=== PATIENT | male | born 1985 | race Caucasian/White ===

== ENCOUNTER 2021-10-07 18:11 | Emergency (ER) | payer SELFPAY ==
[2021-10-07 18:59] VITALS: BP 125/65; PULSE 89; RESP 18; TEMP 36.6; O2SAT 98; BMI 28.3
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
== END 2021-10-07 20:00 | disposition home or self-care (01) ==
PROVIDERS: Emergency Provider Emergency Medicine
DX: T25.222A Burn of second degree of left foot, initial encounter (principal); T31.0 Burns involving less than 10% of body surface; X10.2XXA Contact with fats and cooking oils, initial encounter; L03.116 Cellulitis of left lower limb; L84 Corns and callosities; Y93.G3 Activity, cooking and baking; Y92.030 Kitchen in apartment as the place of occurrence of the external cause; Y99.9 Unspecified external cause status
CPT/HCPCS: 99283

== ENCOUNTER 2024-06-28 18:26 | Emergency (ER) | payer SELFPAY ==
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
--- NOTE | ~2024-06-28 | CT_ITS ---
EXAMINATION: CT chest w IV con (accession [id number]), CT head/brain wo IV con (accession [id number]), CT abdomen pelvis w IV con (accession [id number]), CT cervical spine wo IV con (accession [id number]) CLINICAL INFORMATION: trauma. COMPARISON: CT abdomen and pelvis 12/29/2011. TECHNIQUE: CT imaging of the head and cervical spine were performed without contrast. Coronal and sagittal reformatted images for both exams were obtained. Multidetector volumetric imaging was performed from the thoracic inlet through the pubic symphysis following administration of 85 ml Omnipaque 350 intravenous contrast. Sagittal and coronal reformatted images were obtained on the technologist's workstation. Thin slice coned-down images of the thoracic and lumbar spine were obtained with sagittal and coronal reformatted images through the spine. This CT examination was performed using dose optimization techniques as appropriate, variously including the following: *Automated exposure control *Adjustment of mA and/or kV according to patient size (this includes techniques or standardized protocols for targeted exams where dose is matched to indication/reason for exam; i.e. extremities or head) *Use of iterative reconstruction technique DLP: 1019 mGy-cm FINDINGS: Head: There is no evidence of acute intracranial hemorrhage or territorial infarction. No abnormal mass effect or midline shift is seen. Villa to white matter differentiation is well preserved. No extra-axial fluid collections are identified. No hydrocephalus. No significant volume loss. There is no abnormal attenuation within the brain parenchyma. No acute osseous or soft tissue abnormality. Mucosal thickening in the bilateral maxillary sinuses. Remainder of the paranasal sinuses are clear. Cervical spine: There is anatomic alignment of the vertebral bodies and posterior elements. The atlantoaxial and atlantooccipital articulations are intact. Vertebral body heights and intervertebral disc spaces are maintained. No evidence of acute fracture. No prevertebral soft tissue swelling. Visualized portions of the lung apices are unremarkable. The thyroid gland is unremarkable. CHEST: Lung: The lungs are clear without focal opacity or nodule. Mediastinum: The mediastinum is normal. The central vascular structures are unremarkable. No hilar or mediastinal lymphadenopathy. Pericardium/Pleura: No significant effusion. No pleural mass or thickening. Chest Wall/Axilla: Bilateral gynecomastia. No axillary lymphadenopathy. ABDOMEN/PELVIS: The abdomen and pelvis exam is nondiagnostic secondary to marked motion artifact. The visualized abdominal structures in the CT exam showed no acute abdominal abnormalities. There is hepatic steatosis. No acute osseous abnormalities in the visualized thoracic and upper lumbar spine. CT/CT chest w IV con IMPRESSION: HEAD: No acute intracranial pathology. CERVICAL SPINE: No acute abnormality. CHEST: No acute abnormality. ABDOMEN AND PELVIS: 1. Abdominal images are nondiagnostic secondary to extensive motion artifact. 2. Hepatic steatosis. Electronically signed by: Juan Goff MD 06/28/2024 09:03 PM EDT
--- NOTE | ~2024-06-28 | CT_ITS ---
EXAMINATION: CT chest w IV con (accession [id number]), CT head/brain wo IV con (accession [id number]), CT abdomen pelvis w IV con (accession [id number]), CT cervical spine wo IV con (accession [id number]) CLINICAL INFORMATION: trauma. COMPARISON: CT abdomen and pelvis 12/29/2011. TECHNIQUE: CT imaging of the head and cervical spine were performed without contrast. Coronal and sagittal reformatted images for both exams were obtained. Multidetector volumetric imaging was performed from the thoracic inlet through the pubic symphysis following administration of 85 ml Omnipaque 350 intravenous contrast. Sagittal and coronal reformatted images were obtained on the technologist's workstation. Thin slice coned-down images of the thoracic and lumbar spine were obtained with sagittal and coronal reformatted images through the spine. This CT examination was performed using dose optimization techniques as appropriate, variously including the following: *Automated exposure control *Adjustment of mA and/or kV according to patient size (this includes techniques or standardized protocols for targeted exams where dose is matched to indication/reason for exam; i.e. extremities or head) *Use of iterative reconstruction technique DLP: 1019 mGy-cm FINDINGS: Head: There is no evidence of acute intracranial hemorrhage or territorial infarction. No abnormal mass effect or midline shift is seen. Villa to white matter differentiation is well preserved. No extra-axial fluid collections are identified. No hydrocephalus. No significant volume loss. There is no abnormal attenuation within the brain parenchyma. No acute osseous or soft tissue abnormality. Mucosal thickening in the bilateral maxillary sinuses. Remainder of the paranasal sinuses are clear. Cervical spine: There is anatomic alignment of the vertebral bodies and posterior elements. The atlantoaxial and atlantooccipital articulations are intact. Vertebral body heights and intervertebral disc spaces are maintained. No evidence of acute fracture. No prevertebral soft tissue swelling. Visualized portions of the lung apices are unremarkable. The thyroid gland is unremarkable. CHEST: Lung: The lungs are clear without focal opacity or nodule. Mediastinum: The mediastinum is normal. The central vascular structures are unremarkable. No hilar or mediastinal lymphadenopathy. Pericardium/Pleura: No significant effusion. No pleural mass or thickening. Chest Wall/Axilla: Bilateral gynecomastia. No axillary lymphadenopathy. ABDOMEN/PELVIS: The abdomen and pelvis exam is nondiagnostic secondary to marked motion artifact. The visualized abdominal structures in the CT exam showed no acute abdominal abnormalities. There is hepatic steatosis. No acute osseous abnormalities in the visualized thoracic and upper lumbar spine. CT/CT cervical spine wo IV con IMPRESSION: HEAD: No acute intracranial pathology. CERVICAL SPINE: No acute abnormality. CHEST: No acute abnormality. ABDOMEN AND PELVIS: 1. Abdominal images are nondiagnostic secondary to extensive motion artifact. 2. Hepatic steatosis. Electronically signed by: Juan Goff MD 06/28/2024 09:03 PM EDT
[2024-06-28 18:40] VITALS: BP 126/87; PULSE 90; RESP 18; TEMP 36.8; O2SAT 99; BMI 27.2
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
[2024-06-28 18:55] LABS: MANUAL DIFF FLAG NO
[2024-06-28 18:57] LABS: Basophils Percent Auto 0.2 % (0-2); Eosinophils Absolute Auto 0.1 X10*3/uL (0.0-0.4); Eosinophils Percent Auto 1.2 % (0-4); Hematocrit 39.8 % (42.0-52.0); Hemoglobin 14.5 g/dl (14.0-18.0); Imm Gran Abs Auto 0.02 X10*3/uL (0.00-0.03); Imm Gran Pct Auto 0.2 % (0.0-0.4); Lymphocytes Absolute Auto 1.4 X10*3/uL (1.2-4.9); Lymphocytes Percent Auto 17.5 % (20-40); Mean Corpuscular HGB Conc 36.4 g/dl (31.0-36.0); Mean Corpuscular Hemoglobin 32.8 pg (27.0-33.0); Mean Platelet Volume 9.5 fL (9.4-12.4); Monocytes Percent Auto 11.8 % (2-11); Neutrophils Absolute Auto 5.5 x10*3/uL (2.0-8.3); Neutrophils Percent Auto 69.1 % (45-73); Platelet Count 239 X10*3/uL (160-400); Red Blood Count 4.42 X10*6/uL (4.60-5.80); Red Cell Distribution Width 12.4 % (11.0-16.0)
[2024-06-28 19:11] LABS: Alanine Aminotransferase 21 U/L (0-40); Albumin Level 4.6 g/dL (3.5-5.0); Alkaline Phosphatase 55 U/L (39-117); Anion Gap 16 (12-20); Aspartate Amino Transferase 36 U/L (5-37); Bilirubin Total 0.9 mg/dL (0.0-1.0); Blood Urea Nitrogen 11 mg/dL (9-16); Calcium 9.9 mg/dL (8.4-10.2); Carbon Dioxide 24 mmol/L (22-29); Chloride 105 mmol/L (96-108); Creatinine Clr Calc Pharmacy 139.4; Estimated Glomerular Filt Rate > 60; Glucose Random 86 mg/dL (60-115); Lipase 32 U/L (8-78); Sodium 141 mmol/L (135-145); Total Protein 7.8 g/dL (6.5-8.0)
[2024-06-28] MEDS: iohexoL 350 MG/ML 100 ML INFUS..BTL IV (20:19)
[2024-06-28 22:15] VITALS: BP 104/60; PULSE 72; RESP 16; TEMP 36.9; O2SAT 97
[2024-06-28] MEDS: Ibuprofen 600 MG TABLET PO (23:06)
[2024-06-29 01:41] VITALS: BP 101/63; PULSE 73; RESP 18; TEMP 37; O2SAT 97
[2024-06-29 01:46] VITALS: BP 101/63; PULSE 73; RESP 20; TEMP 36.7; O2SAT 97
--- NOTE | 2024-06-29 01:47 | PC.NURSE ---
Reviewed discharge instruction with pt, pt verbalized understanding, no sign of distress at this time.
== END 2024-06-29 01:47 | disposition home or self-care (01) ==
PROVIDERS: Physician Assistant; Emergency Provider Emergency Medicine
DX: S09.90XA Unspecified injury of head, initial encounter (principal); S40.012A Contusion of left shoulder, initial encounter; V23.41XA Electric (assisted) bicycle driver injured in collision with car, pick-up truck or van in traffic accident, initial encounter; Y93.9 Activity, unspecified; Y92.410 Unspecified street and highway as the place of occurrence of the external cause; Y99.9 Unspecified external cause status
CPT/HCPCS: 36415; 70450; 71260; 72125; 73030; 74177; 80053; 83690; 85025; 99284; Q9967